=== PATIENT | male | born 1970 | race Caucasian/White ===

== ENCOUNTER 2021-01-02 13:46 | Emergency (ER) | payer SELFPAY ==
[2021-01-02] MEDS ORDERED: Acetaminophen/oxyCODONE 325-5 MG Tab PO ONE (14:31)
--- NOTE | 2021-01-02 14:39 | EDM.PDOC ---
ED HPI GENERAL MEDICAL PROBLEM - General Chief Complaint: General Stated Complaint: NEEDS MED REFILLED Time Seen by Provider: 01/02/21 13:55 Source of Information: Reports: Patient, RN Notes Reviewed History Limitations: Reports: No Limitations - History of Present Illness INITIAL COMMENTS - FREE TEXT/NARRATIVE: Patient is a 50-year-old male who presents to the ER, because he subsequently ran out of his Suboxone films 2 days ago. 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 But he had only 2 Suboxone films left in his wallet, and those are gone. States he is having back pain, which is chronic for him, and some slight diarrhea, he is fairly anxious in the room. He essentially would like his Suboxone refilled, but is requesting Percocet tablets for his pain management. He has had no fevers or chills, cough or shortness of breath, or any sort of nausea or vomiting. Lower Back Pain Score (Numeric/FACES): 8 - Related Data Allergies Allergy/AdvReac Type Severity Reaction Status Date / Time No Known Allergies Allergy Verified 01/02/21 13:55 Home Meds: Home Meds Buprenorphine HCl/Naloxone HCl [Suboxone 4 mg-1 mg Sl Film] 8 mg PO BID 01/02/21 [History] Past Medical History Musculoskeletal History: Reports: Back Pain, Chronic - Past Surgical History Other Musculoskeletal Surgeries/Procedures:: back pain Social & Family History - Tobacco Use Tobacco Use Status *Q: Never Tobacco User - Caffeine Use Caffeine Use: Reports: None - Recreational Drug Use Recreational Drug Use: No ED ROS GENERAL - Review of Systems Review Of Systems: Comprehensive ROS is negative, except as noted in HPI. ED EXAM, GENERAL - Physical Exam Exam: See Below Exam Limited By: No Limitations General Appearance: Anxious (pt appears fidgety in the room but does state that he is in pain.) Eye Exam: Bilateral Eye: EOMI, Normal Inspection, PERRL Respiratory/Chest: No Respiratory Distress, Lungs Clear, Normal Breath Sounds, No Accessory Muscle Use, Chest Non-Tender Cardiovascular: Normal Peripheral Pulses, Regular Rate, Rhythm, No Edema Peripheral Pulses: 2+: Radial (L), Radial (R) Neurological: Alert, Oriented, Normal Cognition, No Motor/Sensory Deficits Psychiatric: Anxious (slight generalized) Skin Exam: Warm, Dry, Intact, Normal Color, No Rash Course - Vital Signs Last Recorded V/S: Last Vital Signs Temp 98.4 F 01/02/21 13:56 Pulse 50 L 01/02/21 13:56 Resp 12 01/02/21 13:56 BP 179/102 H 01/02/21 13:56 Pulse Ox 100 01/02/21 13:56 - Orders/Labs/Meds Meds: Medications Discontinued Medications Generic Name Dose Route Start Last Admin Trade Name Chris PRN Reason Stop Dose Admin Oxycodone/Acetaminophen 2 tab 01/02/21 14:31 01/02/21 14:38 Acetaminophen/Oxycodone 325-5 Mg Tab PO 01/02/21 14:32 2 tab ONETIME ONE Administration - Re-Assessments/Exams Free Text/Narrative Re-Assessment/Exam: 01/02/21 14:42 Patient presents to the ER for evaluation of having run out of Suboxone. Unfortunately I cannot provide him with Suboxone. I have given him 2 tablets of oral Percocet through the ER. And I will provide him with a one-time prescription of Percocet tablets 5/325 mg to the [facility] as a compassionate care release. Patient was understanding of this being a one-time situation. Departure - Departure Time of Disposition: 14:37 Disposition: Home, Self-Care 01 Condition: Fair Clinical Impression: Encounter for monitoring Suboxone maintenance therapy - Discharge Information *PRESCRIPTION DRUG MONITORING PROGRAM REVIEWED*: No *COPY OF PRESCRIPTION DRUG MONITORING REPORT IN PATIENT ETELVINA: No Referrals: PCP,Not In Area [Primary Care Provider] - Forms: ED Department Discharge Additional Instructions: You were seen in this ER because you ran out of your Suboxone tablets. You have been given a one-time prescription of oxycodone/acetaminophen 5/325 mg tablets, you can take 1 to 2 tablets every 4-6 hours as needed for pain, as a compassionate care release through our [facility], as you have recently lost your wallet. Again this is a one-time only situation. When you get back to [facility], you will need to follow-up with your regular care provider to get the medications that you need filled. Please do not hesitate to return to any ER on your way home, if you should need any sort of further help. Sepsis Event Note (ED) - Evaluation Sepsis Screening Result: No Definite Risk - Focused Exam Vital Signs: Vital Signs Temp Pulse Resp BP Pulse Ox 01/02/21 13:56 98.4 F 50 L 12 179/102 H 100
== END 2021-01-02 14:53 | disposition home or self-care (01) ==
LOC: JD.ED 13:46
DX: M54.5 Low back pain (principal); Z76.0 Encounter for issue of repeat prescription
CPT/HCPCS: 99281; A9270; 99283